=== PATIENT | male | born 2000 | race Caucasian/White ===

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

== ENCOUNTER 2020-04-08 12:56 | Inpatient (IN) | payer OTHER ==
[~2020-04-08] VITALS: Ht 177.8 cm; Wt 53.0 kg
[~2020-04-08 12:56] MED LIST changes: +INSULIN LI100 UNIT/4 SC
[2020-04-08 14:51] LABS: BASOPHILS ABSOLUTE AUTO 0.08 K/mm3 (0.00-0.23); BASOPHILS PERCENT AUTO 1 % (0-2); EOSINOPHILS ABSOLUTE AUTO 0.01 K/mm3 (0.00-0.68); EOSINOPHILS PERCENT AUTO 0 % (0-6); Hematocrit 27.7 % (37.0-53.0); Hemoglobin 8.9 g/dL (13.5-17.5); IMMATURE GRAN ABSOLUTE AUTO 0.62 K/mm3 (0.00-0.10); IMMATURE GRAN PERCENT AUTO 4 % (0-1); LYMPHOCYTES ABSOLUTE AUTO 3.56 K/mm3 (0.84-5.20); LYMPHOCYTES PERCENT AUTO 21 % (21-46); MONOCYTES ABSOLUTE AUTO 0.72 K/mm3 (0.16-1.47); MONOCYTES PERCENT AUTO 4 % (4-13); Mean Corpuscular HGB Conc 32.1 g/dL (31.5-36.5); Mean Corpuscular Volume 100 fL (80-100); Mean Platelet Volume 9.6 fL (9.1-12.4); NEUTROPHILS ABSOLUTE AUTO 12.05 K/mm3 (1.96-9.15); NEUTROPHILS PERCENT AUTO 71 % (41-73); Platelet Count 186 K/mm3 (150-400); RDW Coefficient Variation 12.4 % (11.7-14.2); RDW Standard Deviation 45.2 fL (35.1-46.3); Red Blood Cell Count 2.78 M/mm3 (4.30-5.90); White Blood Cell Count 17.04 K/mm3 (4.00-11.30)
[2020-04-08 15:13] LABS: Magnesium, Blood 0.9 mg/dL (1.6-2.4); Phosphorus, Blood 1.8 mg/dL (2.5-4.9)
[2020-04-08 15:20] LABS: Alanine Aminotransfer (ALT/SGP 10 U/L (12-78); Albumin, Blood 1.4 g/dL (3.4-5.0); Albumin/Globulin Ratio 0.9 (0.8-1.8); Alk Phos 44 U/L (58-237); Anion Gap 19 mmol/L (6-16); Aspartate Aminotrans (AST/SGOT 5 U/L (12-37); Bilirubin, Total 0.2 mg/dL (0.1-1.0); Blood Urea Nitrogen 6 mg/dL (8-21); Bun/Creatinine Ratio 18.6 (12.0-20.0); CO2, Blood 3 mmol/L (21-32); Chloride, Blood 131 mmol/L (98-108); Creatinine, Blood 0.32 mg/dL (0.60-1.20); Globulin, Blood 1.6 g/dL (2.2-4.0); Glomerular Filtration Rate >60 (60-); Glucose, Blood 300 mg/dL (70-99); Potassium, Blood 1.9 mmol/L (3.5-5.5); Sodium, Blood 153 mmol/L (136-145)
[2020-04-08 15:21] LABS: Beta-hydroxybutyrate 50.8 mg/dL (0.2-2.8); Calcium, Blood <5.0 mg/dL (8.5-10.1); Glucose, Blood 299 mg/dL (70-99)
[2020-04-08 16:11] LABS: Bicarbonate Venous 6.8 mmol/L (24.0-30.0); PCO2 Venous 17.8 mmHg (38-42); PO2 Venous 64.2 mmHg (38-42); pH Blood Venous 6.85 (7.34-7.37)
[2020-04-08 16:12] LABS: Base Excess Venous -30.7 mmol/L
[2020-04-08 18:05] LABS: Base Excess Venous -29.9 mmol/L; Bicarbonate Venous 6.7 mmol/L (24.0-30.0); PCO2 Venous 10.9 mmHg (38-42)
[2020-04-08 18:06] LABS: pH Blood Venous 6.94 (7.34-7.37)
--- NOTE | 2020-04-08 19:14 | NUR ---
ASSUMED PT CARE REPORT AND BEDSIDE ROUNDING WITH ALEENA FORDE AT 1900. ASSUMED PT CARE. PT ALERT AND ORIENTED. SLOW TO RESPOND AT TIMES. HX ASPERGERS. PT SKIN PALE AND INTACT. BRUISING TO MULT AREAS FROM IVS/LABS. QUAD LUMEN CENTRAL LINE TO RIGHT GROIN, DRESSING SATURATED IN BLOOD, FLOWS WELL. AWAITING CHEM RESULTS TO RESUME INSULIN. PT ON RA, SATS >92%, BIPAP PRN, PT CANT TOLERATE. BPS STABLE. PT VOIDS USING URINAL, ABD SOFT AND NON TENDER. PT INTERMITTENT RLQ PAIN AND NAUSEA (NONE NOW). PT MOVES ALL EXT, VERY FITFUL. MAG INFUSING, BICARB INFUSING, INSULIN ON STANDBY, K-PHOS INFUSING SEE FULL SHIFT ASSESSMENT.
--- NOTE | 2020-04-08 19:25 | NUR ---
TRANSFER/END OF SHIFT PT TO ICU 9 FROM ER AT 1645, DR. MESA AT BEDSIDE. PT ALERT AND OREINTED, APPROPRIATE AND COOPERATIVE. HR 120'S SIT, BP ELEVATED. RT AT BEDSIDE TO ATTEMPT BIPAP, PT UNABLE TO TOLERATE, BIPAP OFF PER DR. MESA, PT ON RA WITH SPO2 99%. KUSSMAUL RESPIRATION PATTERN CONTINUES, RR 20-30'S, LS CTA. CENTRAL LINE INSERTED TO R GROIN BY DR. MESA, FLUSHES AND DRAWS WITHOUT DIFFICULTY. ELECTROLYTES AND BICARB INFUSING VIA CENTRAL LINE, LEVAQUIN VIA LAC PERIPHERAL LINE. LABS DRAWN, CL DRESSING CHANGED FOR OOZING, NO LONGER BLEEDING AT TIME OF DRESSING CHANGE. PT VOIDING, PCR SENT TO LAB. DR. MESA AWARE OF 1800 VBG RESULTS, ORDERS TO HOLD BICARB PUSH AND CONTINUE 1/2NS AND BICARB INFUSION AT 75ML/HR. NS INFUSING AT 225ML/HR PER ORDERS. CBG AT [id number], NO INSULIN GTT AT THIS TIME D/T SEVERE HYPOKALEMIA, DR. MESA AWARE, AWAITING CHEMISTRY PROFILE FROM LAB. PT C/O RLQ PAIN WITH PALPATION, ABD US COMPLETED, TECH REPORTS NO OBVIOUS FINDINGS. PT DENIES NAUSEA, REPORTS BREATHING HAS EASED, ICE CHIPS GIVEN PER DR. MESA. PT DENIES OTHR NEEDS. AFEBRILE. REPORT TO ONCOMING SHIFT.
[2020-04-08 19:34] LABS: Alanine Aminotransfer (ALT/SGP 25 U/L (12-78); Alk Phos 104 U/L (58-237); Anion Gap 27 mmol/L (6-16); Aspartate Aminotrans (AST/SGOT 16 U/L (12-37); Bilirubin, Total 0.5 mg/dL (0.1-1.0); Blood Urea Nitrogen 10 mg/dL (8-21); Bun/Creatinine Ratio 17.5 (12.0-20.0); CO2, Blood 4 mmol/L (21-32); Calcium, Blood 6.8 mg/dL (8.5-10.1); Chloride, Blood 107 mmol/L (98-108); Creatinine, Blood 0.57 mg/dL (0.60-1.20); Glomerular Filtration Rate >60 (60-); Glucose, Blood 436 mg/dL (70-99); Sodium, Blood 138 mmol/L (136-145)
[2020-04-08 19:35] LABS: Source, Urine Clean Catch
[2020-04-08 19:35] LABS: Albumin, Blood 3.4 g/dL (3.4-5.0); Globulin, Blood 3.5 g/dL (2.2-4.0); Potassium, Blood 5.1 mmol/L (3.5-5.5); Total Protein, Blood 6.9 g/dL (6.4-8.2)
[2020-04-08 19:39] LABS: U Amphetamine Screen Not Detected; U Barbituate Screen Not Detected; U Benzodiazapine Screen Not Detected; U Buprenorphine Screen Not Detected; U Cannabinoids Screen Not Detected; U Cocaine Screen Not Detected; U Methadone Screen Not Detected; U Methamphetamine Screen Not Detected; U Opiates Screen Not Detected; U Oxycodone Screen Not Detected; U Phencyclidine Screen Not Detected; U Propoxyphene Screen Not Detected
[2020-04-08 19:46] LABS: Appearance, Urine Clear (Clear); Bilirubin, Urine Neg (Neg); Blood, Urine Neg (Neg); Color, Urine Yellow (P-Yellow); Glucose Qualitative, Urine 4+ (Neg); Ketones, Urine 4+ (Neg); Leukocyte Esterase, Urine Neg (Neg); Nitrite, Urine Neg (Neg); Protein, Urine 1+ (Neg); Urobilinogen, Urine NORM (Normal)
[2020-04-08 19:48] LABS: Adenovirus Not Detected (NOT DETECT); Coronavirus 229E Not Detected (NOT DETECT); Coronavirus HKU1 Not Detected (NOT DETECT); Coronavirus NL63 Not Detected (NOT DETECT); Coronavirus OC43 Not Detected (NOT DETECT)
[2020-04-08 19:49] LABS: Bordetella pertussis Not Detected (NOT DETECT); Chlamydophila pneumoniae Not Detected (NOT DETECT); Human Metapneumovirus Not Detected (NOT DETECT); Human Rhinovirus/Enterovirus Not Detected (NOT DETECT); Influenza A/2009-H1 Not Detected (NOT DETECT); Influenza A/H1 Not Detected (NOT DETECT); Influenza A/H3 Not Detected (NOT DETECT); Influenza B Not Detected (NOT DETECT); Mycoplasma pneumoniae Not Detected (NOT DETECT); Parainfluenza Virus 1 Not Detected (NOT DETECT); Parainfluenza Virus 2 Not Detected (NOT DETECT); Parainfluenza Virus 3 Not Detected (NOT DETECT); Parainfluenza Virus 4 Not Detected (NOT DETECT); Respiratory Syncytial Virus Not Detected (NOT DETECT); SARS-Cov-2 (COVID-19), BioFire Not Detected (NOT DETECT)
[2020-04-08 20:29] LABS: Alanine Aminotransfer (ALT/SGP 23 U/L (12-78); Albumin, Blood 3.5 g/dL (3.4-5.0); Albumin/Globulin Ratio 0.9 (0.8-1.8); Alk Phos 111 U/L (58-237); Anion Gap 27 mmol/L (6-16); Aspartate Aminotrans (AST/SGOT 11 U/L (12-37); Bilirubin, Total 0.5 mg/dL (0.1-1.0); Blood Urea Nitrogen 10 mg/dL (8-21); CO2, Blood 3 mmol/L (21-32); Calcium, Blood 6.7 mg/dL (8.5-10.1); Chloride, Blood 104 mmol/L (98-108); Creatinine, Blood 0.53 mg/dL (0.60-1.20); Globulin, Blood 3.7 g/dL (2.2-4.0); Glomerular Filtration Rate >60 (60-); Glucose, Blood 493 mg/dL (70-99); Potassium, Blood 4.8 mmol/L (3.5-5.5); Sodium, Blood 134 mmol/L (136-145); Total Protein, Blood 7.2 g/dL (6.4-8.2)
[2020-04-08 21:17] LABS: Magnesium, Blood 3.4 mg/dL (1.6-2.4)
[2020-04-08 21:20] LABS: PCO2 Venous 11.3 mmHg (38-42); PO2 Venous 102 mmHg (38-42)
[2020-04-08 21:22] LABS: Base Excess Venous -32.9 mmol/L; Bicarbonate Venous 5.5 mmol/L (24.0-30.0); pH Blood Venous <6.80 (7.34-7.37)
[2020-04-08 22:14] LABS: PCO2 Arterial 15.2 mmHg (35-45); PO2 Arterial 42.2 mmHg (80-100)
[2020-04-08 22:55] LABS: Source, Urine Catheter
[2020-04-08 22:58] LABS: Bilirubin, Urine Neg (Neg); Blood, Urine Neg (Neg); Glucose Qualitative, Urine 4+ (Neg); Ketones, Urine 4+ (Neg); Leukocyte Esterase, Urine Neg (Neg); Nitrite, Urine Neg (Neg); Protein, Urine 2+ (Neg); Urobilinogen, Urine NORM (Normal)
[2020-04-08 23:04] LABS: Appearance, Urine Clear (Clear); Color, Urine Pale Yellow (P-Yellow)
[2020-04-08 23:05] LABS: Amorphous Mod (0-Heavy); Bacteria Not Seen /hpf; Red Blood Cells, Urine Not Seen /hpf (0-2); Squamous Epithelial Cells Not Seen /hpf (Few); White Blood Cells, Urine Not Seen /hpf (0-5)
[2020-04-09] LABS: BASOPHILS ABSOLUTE AUTO 0.09 K/mm3 (0.00-0.23); BASOPHILS PERCENT AUTO 0 % (0-2); EOSINOPHILS PERCENT AUTO 0 % (0-6); Hemoglobin 14.8 g/dL (13.5-17.5); IMMATURE GRAN ABSOLUTE AUTO 0.51 K/mm3 (0.00-0.10); IMMATURE GRAN PERCENT AUTO 2 % (0-1); LYMPHOCYTES ABSOLUTE AUTO 3.01 K/mm3 (0.84-5.20); LYMPHOCYTES PERCENT AUTO 11 % (21-46); MONOCYTES ABSOLUTE AUTO 1.77 K/mm3 (0.16-1.47); MONOCYTES PERCENT AUTO 7 % (4-13); Mean Corpuscular HGB Conc 33.6 g/dL (31.5-36.5); Mean Platelet Volume 9.3 fL (9.1-12.4); NEUTROPHILS ABSOLUTE AUTO 21.36 K/mm3 (1.96-9.15); NEUTROPHILS PERCENT AUTO 80 % (41-73); Platelet Count 274 K/mm3 (150-400); RDW Coefficient Variation 12.2 % (11.7-14.2); RDW Standard Deviation 43.1 fL (35.1-46.3); Red Blood Cell Count 4.62 M/mm3 (4.30-5.90); White Blood Cell Count 26.74 K/mm3 (4.00-11.30)
[2020-04-09 00:01] LABS: Mean Corpuscular Volume 95 fL (80-100)
[2020-04-09 00:48] LABS: Alanine Aminotransfer (ALT/SGP 27 U/L (12-78); Albumin, Blood 3.2 g/dL (3.4-5.0); Albumin/Globulin Ratio 0.9 (0.8-1.8); Alk Phos 106 U/L (58-237); Anion Gap 28 mmol/L (6-16); Aspartate Aminotrans (AST/SGOT 12 U/L (12-37); Bilirubin, Total 0.5 mg/dL (0.1-1.0); Blood Urea Nitrogen 10 mg/dL (8-21); Bun/Creatinine Ratio 17.5 (12.0-20.0); CO2, Blood 5 mmol/L (21-32); Calcium, Blood 6.3 mg/dL (8.5-10.1); Chloride, Blood 111 mmol/L (98-108); Creatinine, Blood 0.57 mg/dL (0.60-1.20); Globulin, Blood 3.6 g/dL (2.2-4.0); Glomerular Filtration Rate >60 (60-); Glucose, Blood 220 mg/dL (70-99); Potassium, Blood 3.6 mmol/L (3.5-5.5); Sodium, Blood 144 mmol/L (136-145); Total Protein, Blood 6.8 g/dL (6.4-8.2)
[2020-04-09 01:04] LABS: Base Excess Venous -26.8 mmol/L; Bicarbonate Venous 7.1 mmol/L (24.0-30.0); PCO2 Venous 10.1 mmHg (38-42); PO2 Venous 67.3 mmHg (38-42)
[2020-04-09 01:05] LABS: pH Blood Venous 7.09 (7.34-7.37)
[2020-04-09 04:24] LABS: Base Excess Venous -16.6 mmol/L; Bicarbonate Venous 13.1 mmol/L (24.0-30.0); PCO2 Venous 24.3 mmHg (38-42); pH Blood Venous 7.25 (7.34-7.37)
[2020-04-09 04:30] LABS: BASOPHILS ABSOLUTE AUTO 0.07 K/mm3 (0.00-0.23); BASOPHILS PERCENT AUTO 0 % (0-2); EOSINOPHILS PERCENT AUTO 0 % (0-6); Hematocrit 35.1 % (37.0-53.0); Hemoglobin 12.5 g/dL (13.5-17.5); IMMATURE GRAN ABSOLUTE AUTO 0.31 K/mm3 (0.00-0.10); IMMATURE GRAN PERCENT AUTO 1 % (0-1); LYMPHOCYTES ABSOLUTE AUTO 3.27 K/mm3 (0.84-5.20); LYMPHOCYTES PERCENT AUTO 15 % (21-46); MONOCYTES ABSOLUTE AUTO 1.63 K/mm3 (0.16-1.47); MONOCYTES PERCENT AUTO 8 % (4-13); Mean Corpuscular HGB 32.6 pg (26.0-34.0); Mean Corpuscular HGB Conc 35.6 g/dL (31.5-36.5); Mean Corpuscular Volume 91 fL (80-100); Mean Platelet Volume 9.3 fL (9.1-12.4); NEUTROPHILS PERCENT AUTO 76 % (41-73); Platelet Count 216 K/mm3 (150-400); RDW Coefficient Variation 12.1 % (11.7-14.2); RDW Standard Deviation 40.7 fL (35.1-46.3); Red Blood Cell Count 3.84 M/mm3 (4.30-5.90); White Blood Cell Count 21.78 K/mm3 (4.00-11.30)
[2020-04-09 04:48] LABS: Alanine Aminotransfer (ALT/SGP 18 U/L (12-78); Albumin, Blood 2.5 g/dL (3.4-5.0); Albumin/Globulin Ratio 0.9 (0.8-1.8); Alk Phos 79 U/L (58-237); Anion Gap 21 mmol/L (6-16); Aspartate Aminotrans (AST/SGOT 24 U/L (12-37); Bilirubin, Total 0.6 mg/dL (0.1-1.0); Blood Urea Nitrogen 8 mg/dL (8-21); Bun/Creatinine Ratio 15.1 (12.0-20.0); CO2, Blood 12 mmol/L (21-32); Chloride, Blood 115 mmol/L (98-108); Creatinine, Blood 0.53 mg/dL (0.60-1.20); Globulin, Blood 2.8 g/dL (2.2-4.0); Glomerular Filtration Rate >60 (60-); Glucose, Blood 194 mg/dL (70-99); Potassium, Blood 3.5 mmol/L (3.5-5.5); Sodium, Blood 148 mmol/L (136-145); Total Protein, Blood 5.3 g/dL (6.4-8.2)
[2020-04-09 04:57] LABS: Magnesium, Blood 1.6 mg/dL (1.6-2.4)
[2020-04-09 04:58] LABS: Beta-hydroxybutyrate 71.3 mg/dL (0.2-2.8); Phosphorus, Blood 1.1 mg/dL (2.5-4.9)
--- NOTE | 2020-04-09 06:40 | NUR ---
SHIFT SUMMARY PT INTUBATED AND SEDATED DUE TO WORSENING GASES AND PT NOT ABLE TO TOLERATE BIPAP. PT RSI AT 2221 WITH 10MG ETOMIDATE AND 10MG ROCURONIUM, DR MESA PLACED AN 8.0 ETT, SECURED 26CM AT LIP. PT TOLERATED WELL, OG TUBE PLACED AT THIS TIME. BOTH CONFIRMED WITH AUSCULTATION AND CXR. BILATERAL BREATH SOUNDS CLEAR, +COLORMETRIC CHANGE. OG TO LIS, BROWNISH DRAINAGE TO TUBE. PT SELF EXTUBATED AT 2342 AND WAS REINTUBATED WITH SAME MEDS AND SAME DOSING, TUBE SECURED AT 24CM AT TEETH. VENT SETTINGS SPONTANEOUS 0/5/25%. TEMP PROBE MAIER DRAINING CLEAR YELLOW URINE, AFEBRILE. QUAD LUMEN CENTRAL LINE TO RIGHT GROIN, DRESSING NOW C/D/I. DRESSING NEEDED MULT DRESSING CHANGES DUE TO CONTINUOUS BLEEDING TO SITE. GROIN SHAVED AND NEW DRESSING PLACED AFTER HOLDING PRESSURE FOR 30MIN. NO BRUISING OR HEMATOMA TO GROIN. PT CBGS TRENDING UP TO ACCEPTABLE RANGE. INSULIN INFUSING AT 2UNITS/HR, PROPOFOL INFUSING AT 60MCG/KG/MIN, NS INFUSING AT TKO, D51/2NS INFUSING AT 250ML/HR. PT PALE, SKIN INTACT. PT IN SOFT BILATERAL WRIST RESTRAINTS. RESTING COMFORTABLY. WILL REPORT TO DAY SHIFT RN.
--- NOTE | 2020-04-09 07:00 | NUR ---
CARE ASSUMED 0700 PT SEDATED AND INTUBATED, PROPOFOL @ 60 MCG/KG. PT OPENS EYES OCCASIONALLY. FOLLOWS COMMANDS AND NODS HEAD TO QUESTIONS. PS 0/5, 25%, AND SPO2 97-100%. PT HAS RIGHT FEMORAL CENTRAL LINE ACCESS, C/D/I, INFUSING. OG TUBE IN PLACE TO LOW INTERMITTENT SUCTION, BROWN OUTPUT. MAIER CATH IN PLACE WITH CLEAR YELLOW URINE. VSS. NO FAMILY AT BEDSIDE. WILL CONTINUE TO MONITER. SWB IN PLACE.
[2020-04-09 08:13] LABS: Base Excess Venous -11.3 mmol/L; Bicarbonate Venous 16.8 mmol/L (24.0-30.0); PCO2 Venous 24.3 mmHg (38-42); PO2 Venous 125 mmHg (38-42); pH Blood Venous 7.37 (7.34-7.37)
[2020-04-09 08:36] LABS: Alanine Aminotransfer (ALT/SGP 15 U/L (12-78); Albumin, Blood 2.3 g/dL (3.4-5.0); Albumin/Globulin Ratio 0.9 (0.8-1.8); Alk Phos 72 U/L (58-237); Anion Gap 14 mmol/L (6-16); Aspartate Aminotrans (AST/SGOT 17 U/L (12-37); Bilirubin, Total 0.4 mg/dL (0.1-1.0); Blood Urea Nitrogen 7 mg/dL (8-21); Bun/Creatinine Ratio 12.9 (12.0-20.0); CO2, Blood 16 mmol/L (21-32); Chloride, Blood 116 mmol/L (98-108); Creatinine, Blood 0.54 mg/dL (0.60-1.20); Globulin, Blood 2.7 g/dL (2.2-4.0); Glomerular Filtration Rate >60 (60-); Glucose, Blood 180 mg/dL (70-99); Potassium, Blood 2.6 mmol/L (3.5-5.5); Sodium, Blood 146 mmol/L (136-145)
--- NOTE | 2020-04-09 11:34 | NUR ---
UPDATE DISCUSSED WITH DR. HUERTA PLAN TO EXTUBATE TODAY. UPDATED FAMILY: SPOKE TO PTS MOTHER WHO STATED THAT THE PTS FATHER WILL BE VISITED TODAY. ALL QUESTIONS ANSWERED.
[2020-04-09 12:56] LABS: Albumin, Blood 2.4 g/dL (3.4-5.0); Anion Gap 11 mmol/L (6-16); Blood Urea Nitrogen 6 mg/dL (8-21); Bun/Creatinine Ratio 11.2 (12.0-20.0); CO2, Blood 20 mmol/L (21-32); Calcium, Blood 6.1 mg/dL (8.5-10.1); Chloride, Blood 112 mmol/L (98-108); Creatinine, Blood 0.54 mg/dL (0.60-1.20); Glomerular Filtration Rate >60 (60-); Glucose, Blood 186 mg/dL (70-99); Phosphorus, Blood 1.8 mg/dL (2.5-4.9); Potassium, Blood 2.7 mmol/L (3.5-5.5); Sodium, Blood 143 mmol/L (136-145)
--- NOTE | 2020-04-09 13:31 | NUR ---
EXTUBATED AT 1200 PT EXTUBATED SUCESSFULLY AT 1200 WITH RT. PTS SPO2 100%, 2 L VIA NC. PT A/O X 4. TOLERATED EXTUBATION WELL. WILL CONTINUE TO MONITER.
--- NOTE | 2020-04-09 17:51 | NUR ---
SHIFT SUMMARY PT RESTING IN BED AND WATCHING TELEVISION. PTS VSS AND ON ROOM AIR. PT A/O X 4 AND STATES NO PN. PT WITH STABLE CBG WITH INSULIN @ 2U/HR AND D5W WITH HALF NS INFUSING. PTS FATHER IN TO SEE PT AND ALL QUESTIONS ANSWERED. CENTRAL LINE TO RIGHT FEMORAL SITE C/D/I. WILL CONTINUE TO MONITOR AND REPORT TO INCOMING SHIFT.
[2020-04-09 18:04] LABS: Alanine Aminotransfer (ALT/SGP 11 U/L (12-78); Albumin, Blood 2.4 g/dL (3.4-5.0); Albumin/Globulin Ratio 0.9 (0.8-1.8); Alk Phos 83 U/L (58-237); Anion Gap 9 mmol/L (6-16); Aspartate Aminotrans (AST/SGOT 11 U/L (12-37); Bilirubin, Total 0.3 mg/dL (0.1-1.0); Blood Urea Nitrogen 4 mg/dL (8-21); Bun/Creatinine Ratio 8.1 (12.0-20.0); CO2, Blood 20 mmol/L (21-32); Calcium, Blood 6.3 mg/dL (8.5-10.1); Chloride, Blood 115 mmol/L (98-108); Globulin, Blood 2.6 g/dL (2.2-4.0); Glomerular Filtration Rate >60 (60-); Glucose, Blood 164 mg/dL (70-99); Potassium, Blood 2.9 mmol/L (3.5-5.5); Sodium, Blood 144 mmol/L (136-145)
--- NOTE | 2020-04-09 20:15 | NUR ---
ASSUMED CARE: PT ASLEEP IN BED. FEBRILE IN THE 99-100. IN SR, HR IN THE 90S, SBP IN THE 110S. PT WAS EXTUBATED TODAY DURING DAYSHIFT. TOLERATED WELL. CURRENTLY ON RA. SATTING WELL. DENIES SOB OR DYSPNEA. BT PRESENT. PT IS NO LONGER NPO, TURKEY SANDWICH AND CHEESE STICK GIVEN. LONG ACTING INSULIN STARTED AND INSULIN GTT JUST TURNED OFF. RECENT CBG IS 161. D5 1/2 IS ALSO NOW OFF. WILL RECHECK CBG AT 0000. R FEM CL IN PLACE. DRESSING C/D/I. 2 PIV IN L ARM. PATENT AND SL. PT WILL WAKE UP WITH VERBAL STIMULI. ANSWERS QUESTIONS APPROPRIATELY. IS CALM, COOPERATIVE WITH CARE, AND PLEASANT. WILL CONTINUE TO MONITOR
[2020-04-10 01:03] LABS: Albumin, Blood 2.3 g/dL (3.4-5.0); Anion Gap 8 mmol/L (6-16); Blood Urea Nitrogen 2 mg/dL (8-21); Bun/Creatinine Ratio 3.8 (12.0-20.0); CO2, Blood 23 mmol/L (21-32); Calcium, Blood 6.6 mg/dL (8.5-10.1); Chloride, Blood 112 mmol/L (98-108); Creatinine, Blood 0.53 mg/dL (0.60-1.20); Glomerular Filtration Rate >60 (60-); Glucose, Blood 215 mg/dL (70-99); Phosphorus, Blood 2.7 mg/dL (2.5-4.9); Potassium, Blood 3.3 mmol/L (3.5-5.5); Sodium, Blood 143 mmol/L (136-145)
--- NOTE | 2020-04-10 04:46 | NUR ---
SHIFT SUMMARY TOOK OVER CARE OF PATIENT FROM MAURISIO JAMES AROUND 01:20 THIS AM. AGREE WITH ALL PRIOR ASSESSMENT CHARTING. PT. IS ALERT, ORIENTED, NO C/O PAIN, PERRLA, MOVES ALL EXTREMETIES WELL. MOST OF THE REST OF THE SYSTEMS ASSESSMENT IS WNL, SAVE FOR GENITOURINARY DUE TO MAIER CATH PLACEMENT. TEMPERATURE COMING DOWN WITH PO TYLENOL. VSS. WILL CONTINUIE TO MONITOR.
[2020-04-10 06:14] LABS: BASOPHILS ABSOLUTE AUTO 0.02 K/mm3 (0.00-0.23); BASOPHILS PERCENT AUTO 0 % (0-2); EOSINOPHILS ABSOLUTE AUTO 0.01 K/mm3 (0.00-0.68); EOSINOPHILS PERCENT AUTO 0 % (0-6); Hematocrit 33.7 % (37.0-53.0); Hemoglobin 12.1 g/dL (13.5-17.5); IMMATURE GRAN ABSOLUTE AUTO 0.03 K/mm3 (0.00-0.10); IMMATURE GRAN PERCENT AUTO 0 % (0-1); LYMPHOCYTES ABSOLUTE AUTO 1.71 K/mm3 (0.84-5.20); LYMPHOCYTES PERCENT AUTO 18 % (21-46); MONOCYTES ABSOLUTE AUTO 0.56 K/mm3 (0.16-1.47); MONOCYTES PERCENT AUTO 6 % (4-13); Mean Corpuscular HGB 31.7 pg (26.0-34.0); Mean Corpuscular HGB Conc 35.9 g/dL (31.5-36.5); Mean Corpuscular Volume 88 fL (80-100); Mean Platelet Volume 9.4 fL (9.1-12.4); NEUTROPHILS PERCENT AUTO 75 % (41-73); Platelet Count 172 K/mm3 (150-400); RDW Coefficient Variation 12.3 % (11.7-14.2); RDW Standard Deviation 39.8 fL (35.1-46.3); Red Blood Cell Count 3.82 M/mm3 (4.30-5.90); White Blood Cell Count 9.33 K/mm3 (4.00-11.30)
[2020-04-10 07:43] LABS: Albumin, Blood 2.3 g/dL (3.4-5.0); Anion Gap 9 mmol/L (6-16); Blood Urea Nitrogen 2 mg/dL (8-21); Bun/Creatinine Ratio 4.3 (12.0-20.0); CO2, Blood 23 mmol/L (21-32); Calcium, Blood 7.3 mg/dL (8.5-10.1); Chloride, Blood 112 mmol/L (98-108); Creatinine, Blood 0.46 mg/dL (0.60-1.20); Glomerular Filtration Rate >60 (60-); Glucose, Blood 115 mg/dL (70-99); Phosphorus, Blood 1.7 mg/dL (2.5-4.9); Potassium, Blood 3.2 mmol/L (3.5-5.5); Sodium, Blood 144 mmol/L (136-145)
--- NOTE | 2020-04-10 10:13 | NUR ---
CARE ASSUMED 0700 PT AWAKE AND WATCHING TELEVISION. CURRENTLY ON RA, VSS. PT A/O X4 AND STATES NO PN. CENTRAL LINE TO RIGHT FEMORAL SITE, C/D/I, INFUSING NS. DR. HUERTA IN TO SEE PT AND ORDERS TO D/C CENTRAL LINE AND MAIER CATH. PT BEING PREPARED FOR POSSBILE DISCHARGE LATER TODAY. PT SPOKE TO FATHER VIA PHONE AND FAMILY UPDATED BY MAURISIO MCNAMARA.
[2020-04-10] MEDS ORDERED: BASAGLAR K100 UNIT/1 SC (15:09)
[2020-04-10] MEDS ORDERED: ACET325 PO (15:10)
[2020-04-10] MEDS ORDERED: HUMULIN R100 UNIT/2 SC (15:12)
[2020-04-10] MEDS ORDERED: PANT20 PO (15:14)
[2020-04-10] MEDS ORDERED: Promethazine12.5 M1 PO (15:17)
[2020-04-10] MEDS ORDERED: VISBIOME PROBIOTIC PO (15:29)
--- NOTE | 2020-04-10 16:45 | NUR ---
DISCHARGE 1645 PT FATHERS QUINN AT BEDSIDE DURING PT EDUCTION. EXTENSIVE EDUCTION ABOUT DIABETES, DKA, AND BLOOD SUGAR MANAGEMENT. REENFORCED TEACHING WITH PT AND QUINN. ANSWERED ALL QUESTIONS AND PROVIDED PT AND FATHER WITH COPIES OF DIABETES, INSULIN, AND DKA EDUCTION. IV'S DC'ED. PT ABLE TO DRESS HIMSELF. PT WALKED OUT OF UNIT WITH FATHER AND ALL BELONGS AT 1645.
== END 2020-04-10 16:45 | disposition home or self-care (01) | DRG 637 ==
LOC: ER 12:56 → ICUW 15:29 → ICUE 04-09 09:23
PROVIDERS: Emergency Medicine; Internal Medicine Critical Care Medicine; Internal Medicine Pulmonary Disease; Physician Assistant; ADMIT Family Medicine
PROC: 02HV33Z Insertion of Infusion Device into Superior Vena Cava, Percutaneous Approach (ICD-10-PCS; principal; 2020-04-08)
PROC: 0BH17EZ Insertion of Endotracheal Airway into Trachea, Via Natural or Artificial Opening (ICD-10-PCS; 2020-04-08)
PROC: 5A1945Z Respiratory Ventilation, 24-96 Consecutive Hours (ICD-10-PCS; 2020-04-08)
DX: E10.10 Type 1 diabetes mellitus with ketoacidosis without coma (principal); G92 Toxic encephalopathy; J96.91 Respiratory failure, unspecified with hypoxia; F84.5 Asperger's syndrome; E87.2 Acidosis; R65.10 Systemic inflammatory response syndrome (SIRS) of non-infectious origin without acute organ dysfunction; Z79.4 Long term (current) use of insulin; E88.09 Other disorders of plasma-protein metabolism, not elsewhere classified; E87.6 Hypokalemia; E83.42 Hypomagnesemia; E83.39 Other disorders of phosphorus metabolism
CPT/HCPCS: 0202U; 31720; 36415; 36556; 51702; 51798; 71045; 76857; 80053; 80069; 81001; 82010; 82800; 82803; 82947; 83036; 83605; 83690; 83735; 84100; 84145; 85025; 87040; 93005; 93010; 94003; 96361; 96365; 96375; 99285-25; A9270; C1751; C9113; G0480; J1650; J1815; J1956; J2060; J2405; J2704; J3010; J3475; J3480; J7030; J7042; J7050; J7060; J7120

== ENCOUNTER 2020-10-07 21:31 | Inpatient (IN) | payer OTHER ==
[~2020-10-07] VITALS: Ht 177.8 cm; Wt 56.2 kg
[~2020-10-07 21:31] MED LIST changes: +HUMULIN R100 UNIT/2 SC; +PANT20 PO; +Promethazine12.5 M1 PO; +VISBIOME PROBIOTIC PO
[2020-10-07 22:05] LABS: Calcium, Ionized (POC) 1.23 mmol/L (1.10-1.46); Chloride (POC) 99 mmol/L (98-108); Creatinine (POC) 1.2 mg/dL (0.8-1.3); Glucose (ISTAT POC) >700 mg/dL (70-99); Hemoglobin (POC) 18.4 g/dL (13.5-17.5); Potassium (POC) 6.7 mmol/L (3.5-5.5); Sodium (POC) 125 mmol/L (135-148); Total CO2 (POC) 6 mmol/L (21-32)
[2020-10-07 22:07] LABS: Hematocrit 51.5 % (37.0-53.0); Mean Corpuscular HGB 30.8 pg (26.0-34.0); Mean Corpuscular HGB Conc 31.1 g/dL (31.5-36.5); Mean Corpuscular Volume 99 fL (80-100); Mean Platelet Volume 10.5 fL (9.1-12.4); Platelet Count 469 K/mm3 (150-400); RDW Coefficient Variation 12.7 % (11.7-14.2); RDW Standard Deviation 47.2 fL (35.1-46.3); Red Blood Cell Count 5.19 M/mm3 (4.30-5.90); White Blood Cell Count 32.75 K/mm3 (4.00-11.30)
[2020-10-07 22:27] LABS: Magnesium, Blood 3.1 mg/dL (1.6-2.4)
[2020-10-07 22:28] LABS: Source, Urine Clean Catch
[2020-10-07 22:30] LABS: Bilirubin, Urine Neg (Neg); Blood, Urine Neg (Neg); Glucose Qualitative, Urine 4+ (Neg); Ketones, Urine 4+ (Neg); Leukocyte Esterase, Urine Neg (Neg); Nitrite, Urine Neg (Neg); Protein, Urine 2+ (Neg); Specific Gravity, Urine 1.015 (1.003-1.022); Urobilinogen, Urine NORM (Normal)
[2020-10-07 22:32] LABS: Alanine Aminotransfer (ALT/SGP 29 U/L (12-78); Albumin, Blood 4.7 g/dL (3.4-5.0); Alk Phos 160 U/L (58-237); Aspartate Aminotrans (AST/SGOT 15 U/L (12-37); Bilirubin, Total 0.9 mg/dL (0.1-1.0); Blood Urea Nitrogen 24 mg/dL (8-21); Bun/Creatinine Ratio 21.6 (12.0-20.0); Calcium, Blood 9.9 mg/dL (8.5-10.1); Chloride, Blood 88 mmol/L (98-108); Creatinine, Blood 1.11 mg/dL (0.60-1.20); Globulin, Blood 4.5 g/dL (2.2-4.0); Glomerular Filtration Rate >60 (60-); Sodium, Blood 124 mmol/L (136-145); Total Protein, Blood 9.2 g/dL (6.4-8.2)
[2020-10-07 22:34] LABS: Appearance, Urine Clear (Clear); Color, Urine Yellow (P-Yellow)
[2020-10-07 22:40] LABS: BAND PERCENT MAN 12 % (0-8); BASOPHILS PERCENT MAN 0 % (0-2); EOSINOPHILS PERCENT MAN 0 % (0-6); LYMPHOCYTES ABSOLUTE MAN 2.62 K/mm3 (0.84-5.20); LYMPHOCYTES PERCENT MAN 8 % (21-46); MONOCYTES ABSOLUTE MAN 2.62 K/mm3 (0.16-1.47); MONOCYTES PERCENT MAN 8 % (4-13); NEUTROPHILS ABSOLUTE MAN 27.51 K/mm3 (1.96-9.15); SEG NEUTROPHILS PERCENT MAN 72 % (41-73); TOTAL CELLS COUNTED 100
[2020-10-07 22:42] LABS: Amorphous Light (0-Heavy); Bacteria Not Seen /hpf; Red Blood Cells, Urine Not Seen /hpf (0-2); Squamous Epithelial Cells Not Seen /hpf (Few); White Blood Cells, Urine Not Seen /hpf (0-5)
[2020-10-07 22:46] LABS: Troponin I <0.015 ng/mL (0.000-0.040)
[2020-10-07 22:51] LABS: Anion Gap 31 mmol/L (6-16); CO2, Blood 5 mmol/L (21-32); Glucose, Blood 1065 mg/dL (70-99); Phosphorus, Blood 8.3 mg/dL (2.5-4.9); Potassium, Blood 6.6 mmol/L (3.5-5.5)
[2020-10-07 22:56] LABS: Beta-hydroxybutyrate 101.4 mg/dL (0.2-2.8)
[2020-10-07 23:38] LABS: Base Excess Venous -27.4 mmol/L; Bicarbonate Venous 7.8 mmol/L (24.0-30.0); PCO2 Venous 12.2 mmHg (38-42); PO2 Venous 134 mmHg (38-42)
[2020-10-07] MEDS ORDERED: INSULIN LI100 UNIT/6 SC (23:42)
[2020-10-07 23:43] LABS: pH Blood Venous 7.03 (7.34-7.37)
[2020-10-08 00:33] LABS: Alanine Aminotransfer (ALT/SGP 26 U/L (12-78); Albumin, Blood 4.1 g/dL (3.4-5.0); Albumin/Globulin Ratio 1.1 (0.8-1.8); Alk Phos 138 U/L (58-237); Anion Gap 30 mmol/L (6-16); Aspartate Aminotrans (AST/SGOT 14 U/L (12-37); Bilirubin, Total 0.8 mg/dL (0.1-1.0); Blood Urea Nitrogen 23 mg/dL (8-21); Bun/Creatinine Ratio 24.6 (12.0-20.0); CO2, Blood 5 mmol/L (21-32); Calcium, Blood 9.7 mg/dL (8.5-10.1); Chloride, Blood 98 mmol/L (98-108); Creatinine, Blood 0.94 mg/dL (0.60-1.20); Globulin, Blood 3.9 g/dL (2.2-4.0); Glomerular Filtration Rate >60 (60-); Glucose, Blood 842 mg/dL (70-99); Potassium, Blood 5.3 mmol/L (3.5-5.5); Sodium, Blood 133 mmol/L (136-145)
[2020-10-08 01:51] LABS: Glucose, Blood 574 mg/dL (70-99)
--- NOTE | 2020-10-08 03:40 | NUR ---
ASSUMED CARE NOTE: ASSUMED CARE OF PT AT 1900, RECEVIED REPORT FROM JOSE JOSUE RN. PT IS DROWSY, HOWEVER IS ABLE TO ANSWER QUESTIONS APPROPRIATLY. PT IS PALE, CLAMMY. PT STS HE HAS PAIN TO HIS LOWER RIBS, STATES " IT IS FROM VOMITING, DRY HEAVING" PT DENIES ANY NAUSEA AT THIS TIME. PT IS ON RA WITH SPO2 AT 97% NO RESP DISTRESS NOTED. PT IS IN SINUS TACH WITH HR BETWEEN 110-120. BP STABLE. PT DENIES ANY ISSUES VOIDING BLADDER. INSULIN DRIP AT 1UNIT/HR, LR AT 999ML/HR AND D5 1/2 NS @ 150ML/HR
[2020-10-08 04:45] LABS: Anion Gap 19 mmol/L (6-16); Blood Urea Nitrogen 21 mg/dL (8-21); Bun/Creatinine Ratio 23.8 (12.0-20.0); CO2, Blood 16 mmol/L (21-32); Calcium, Blood 9.9 mg/dL (8.5-10.1); Chloride, Blood 107 mmol/L (98-108); Creatinine, Blood 0.88 mg/dL (0.60-1.20); Glomerular Filtration Rate >60 (60-); Glucose, Blood 336 mg/dL (70-99); Potassium, Blood 4.1 mmol/L (3.5-5.5); Sodium, Blood 142 mmol/L (136-145)
[2020-10-08 05:01] LABS: Phosphorus, Blood 1.8 mg/dL (2.5-4.9)
--- NOTE | 2020-10-08 06:20 | NUR ---
SHIFT SUMMARY: SEE PREVIOUS NOTE. PT CONTINUES TO BE ON INSULIN DRIP 1.5U/HR. INITIATED D5 1/2NS AT 150ML/HR WHICH WAS STARTED BY ER BEFORE ARRIVAL. PT CONTINUES TO BE ON RA WITH SPO2 ABOVE 90% NO RESP DISTRESS NOTED. PT IS ON SIT WITH HR IN BETWEEN 105-120, BP STABLE. NO BMP ORDERED FOR RECHECK, WILL PASS ON TO DAYSHIFT. AWARE OF RECENT LAB ORDERS. WILL CONTINUE TO MONITOR PT UNTIL REPORT IS GIVEN TO ONCOMING SHIFT.
--- NOTE | 2020-10-08 08:00 | NUR ---
PT SLEEPS WHEN NOT DISTURBED. AWAKENS TO VOICE. APPEARS WITHDRAWN. PT DENIES PAIN OR NAUSEA. CBG 242-INSULIN DRIP @ 2 UNITS/HR. PT NPO-RECHECK CHEMISTRIES LATER THIS AM. PT STILL HAS NOT VOIDED YET. PT STATES "I DON'T HAVE TO PEE."
[2020-10-08 08:42] LABS: Anion Gap 8 mmol/L (6-16); Beta-hydroxybutyrate 15.8 mg/dL (0.2-2.8); Blood Urea Nitrogen 15 mg/dL (8-21); Bun/Creatinine Ratio 23.3 (12.0-20.0); CO2, Blood 22 mmol/L (21-32); Calcium, Blood 8.9 mg/dL (8.5-10.1); Chloride, Blood 111 mmol/L (98-108); Creatinine, Blood 0.65 mg/dL (0.60-1.20); Glomerular Filtration Rate >60 (60-); Glucose, Blood 242 mg/dL (70-99); Phosphorus, Blood 2.1 mg/dL (2.5-4.9); Sodium, Blood 141 mmol/L (136-145)
--- NOTE | 2020-10-08 12:15 | NUR ---
PT A&OX4-DENIES PAIN OR NAUSEA. VS WDL. CBG 189-INSULIN DRIP CONTINUES @ 2 UNITS/HR. ADA DIET GIVEN. PT GIVEN HUMALOG SQ PER SLIDING SCALE AND LONG ACTING INSULIN WELL-SEE EMAR. WILL DISCONTINUE INSULIN IN [address] BERNSTEIN. PT FINALLY VOIDED 550 CC DARK, YELLOW URINE.
[2020-10-08 12:31] LABS: BASOPHILS ABSOLUTE AUTO 0.05 K/mm3 (0.00-0.23); BASOPHILS PERCENT AUTO 0 % (0-2); EOSINOPHILS PERCENT AUTO 0 % (0-6); Hematocrit 38.6 % (37.0-53.0); Hemoglobin 13.6 g/dL (13.5-17.5); IMMATURE GRAN ABSOLUTE AUTO 0.16 K/mm3 (0.00-0.10); IMMATURE GRAN PERCENT AUTO 1 % (0-1); LYMPHOCYTES ABSOLUTE AUTO 2.36 K/mm3 (0.84-5.20); LYMPHOCYTES PERCENT AUTO 11 % (21-46); MONOCYTES ABSOLUTE AUTO 1.58 K/mm3 (0.16-1.47); MONOCYTES PERCENT AUTO 7 % (4-13); Mean Corpuscular HGB 31.2 pg (26.0-34.0); Mean Corpuscular HGB Conc 35.2 g/dL (31.5-36.5); Mean Platelet Volume 9.5 fL (9.1-12.4); NEUTROPHILS ABSOLUTE AUTO 17.18 K/mm3 (1.96-9.15); NEUTROPHILS PERCENT AUTO 81 % (41-73); Platelet Count 297 K/mm3 (150-400); RDW Coefficient Variation 12.8 % (11.7-14.2); RDW Standard Deviation 41.9 fL (35.1-46.3); Red Blood Cell Count 4.36 M/mm3 (4.30-5.90); White Blood Cell Count 21.33 K/mm3 (4.00-11.30)
[2020-10-08 12:45] LABS: Anion Gap 9 mmol/L (6-16); Blood Urea Nitrogen 14 mg/dL (8-21); CO2, Blood 25 mmol/L (21-32); Calcium, Blood 9.1 mg/dL (8.5-10.1); Chloride, Blood 110 mmol/L (98-108); Creatinine, Blood 0.67 mg/dL (0.60-1.20); Glomerular Filtration Rate >60 (60-); Glucose, Blood 185 mg/dL (70-99); Potassium, Blood 3.9 mmol/L (3.5-5.5); Sodium, Blood 144 mmol/L (136-145)
[2020-10-08 13:18] LABS: Mean Corpuscular Volume 89 fL (80-100)
--- NOTE | 2020-10-08 17:26 | NUR ---
PT HAS BEEN RESTING QUIELTY THROUGH OUT THE AFTERNOON. PT DENIES COMPLAINTS. VS STABLE. PT TOLERATING PO FOOD AND FLUIDS WELL. CBG 319 COVERED PER SLIDING SCALE-SEE EMAR.REPORT PHONE TO MAURISIO HERNÁNDEZ. PT TO TRANSFER TO ROOM 361 ONCE FINISHED WITH DINNER.
--- NOTE | 2020-10-08 18:57 | NUR ---
ASSUMED CARE AT 1800. REPORT FROM ELISSA FORDE. PT IS ALERT AND ORIENTED AND INDEPENDENT IN ROOM. NO COMPLAINTS. ROOM AIR. ON PHONE WHEN NURSE LEFT. CALL LIGHT WITHIN REACH.
--- NOTE | 2020-10-09 04:39 | NUR ---
A/OX4, IND TO BATHROOM. PT QUIET AND WITHDRAWN T/O SHIFT. IV ABX GIVEN. VSS, NO ACUTE CHANGES AT THIS TIME. BED IN LOWEST POSITION WITH CALL LIGHT IN REACH. WILL CONTINUE TO MONITOR AND REPORT TO ONCOMING RN.
--- NOTE | 2020-10-09 18:29 | NUR ---
PT IS A/OX4, PLEASANT AND COOPERATIVE, THE PT IS UP WITH MINIMAL ASSIST, PT APPEARS TO BE BREATHING EASILY ON RA AT THIS TIME, THE PT DENIED ANY PAIN, THE PTS FAMILY CAME IN TO VISIT HIM TODAY, PLAN FOR POSSIBLE DISCHARGE [facility] IN BS IS CONTROLED, CALL LIGHT IN REACH WILL CONTINUE TO MONITOR AND ASSESS FOR CHANGES
--- NOTE | 2020-10-10 04:00 | NUR ---
DIRECTOR OF PUBLIC WORKS SUMMARY A/OX4, INDEPENDENT IN ROOM. PLEASANT AND COOPERATIVE WITH CARE. DENIES PAIN OR SOB. VSS, NO ACUTE CHANGES AT THIS TIME. BED IN LOWEST POSITION WITH CALL LIGHT IN REACH. WILL CONTINUE TO MONITOR AND REPORT TO ONCOMING RN.
--- NOTE | 2020-10-10 14:38 | NUR ---
PT DISCHARGED THE PT VERBALIZED UNDERSTANDING OF THE DC INSTRUCTIONS, THE PTS WAS REMINDED TO CALL HIS PCP [facility] FOR A [facility] HOSP[facility] REVIEW APPOINTMENT, THE PT APPEARED TO BE BREATHING EASILY ON RA AT THE TIME OF DC, THE PT DECLINED A WHEELCHAIR AND AMBULATED OUT WITH HIS MOTHER
== END 2020-10-10 14:32 | disposition home or self-care (01) | DRG 638 ==
LOC: ER 21:31 → ICUW 23:58 → ERHOLD 23:58 → ICUW 10-08 02:38 → MEDS 10-08 18:02
PROVIDERS: Emergency Medicine; Family Medicine; Physician Assistant; ADMIT Internal Medicine
DX: E10.10 Type 1 diabetes mellitus with ketoacidosis without coma (principal); R65.10 Systemic inflammatory response syndrome (SIRS) of non-infectious origin without acute organ dysfunction; F84.5 Asperger's syndrome; E87.5 Hyperkalemia; E83.39 Other disorders of phosphorus metabolism; E86.0 Dehydration
CPT/HCPCS: 36415; 80047; 80048; 80053; 81001; 82010; 82803; 82947; 83735; 84100; 84484; 85014; 85025; 87040; 93005; 93010; 96361; 96374; 96375; 96376; 99285-25; A9270; C9113; J0610; J1650; J1815; J2405; J2543; J7042; J7060; J7120; J7799